=== PATIENT | female | born 1975 | race Caucasian/White ===

== ENCOUNTER 2016-11-08 09:30 | Inpatient (IN) | payer MEDICAID ==
[~2016-11-08] VITALS: Ht 162.6 cm; Wt 123.7 kg
--- NOTE | ~2016-11-08 | OR ---
PATIENT'S NAME: CODY LOPEZ [facility] AGE: 41 Y [address] ROOM: [place] [address] LOCATION: GPCU ADMIT DATE: 11/08/2016 OR/Procedure Report DISCHARGE DATE: FAMILY PHYSICIAN: PHYSICIAN, UNKNOWN ATTENDING PHYSICIAN: JOELLEN CAICEDO SURGEON: Ivan Sim MD SENIOR PROCESS ENGINEER: DATE OF PROCEDURE: 11/08/2016 PREOPERATIVE DIAGNOSIS: Hypertriglyceridemia with pancreatitis, need for plasmapheresis. POSTPROCEDURE DIAGNOSIS: Hypertriglyceridemia with pancreatitis, need for plasmapheresis. PROCEDURE: Placement of right internal jugular Mahurkar 16 cm acute temporary dialysis catheter with ultrasound-guided vein access. ANESTHESIA: Local. DESCRIPTION OF PROCEDURE: The right neck was prepped and draped. Right IJ was identified with ultrasound and the skin anesthetized just superior to this. Under ultrasound guidance, a 19-gauge needle was passed into the vein, single wall technique and a J tipped guidewire passed centrally. The needle was removed. The skin was opened slightly over the wire with an 11 scalpel blade, the tract was dilated, and the 16 cm Mahurkar catheter passed to its hub. Ports aspirated and flushed well. Saline gauze rolls were placed. The catheter was secured to the skin with 3-0 silk and a sterile dressing was applied. The patient tolerated the procedure well. MD ANJUM CARTER/modl /[id number] d: 11/08/16 1517 t: 11/11/16 0818, OPERATIVE SUMMARY
--- NOTE | ~2016-11-08 | CON ---
PATIENT'S NAME: CODY LOPEZ [facility] AGE: 41 Y [address] ROOM: [place] [address] LOCATION: GPCU ADMIT DATE: 11/08/2016 Consultation DISCHARGE DATE: FAMILY PHYSICIAN: Tavares Muniz MD ATTENDING PHYSICIAN: JOELLEN CAICEDO DATE OF CONSULTATION: 11/08/2016 REFERRING PHYSICIAN: Ivan Sim MD This is a [facility] Nephrology consultation. REASON FOR CONSULTATION: Severe hypertriglyceridemia, acute pancreatitis. HISTORY OF PRESENT ILLNESS: This is a 41-year-old female patient with a history of diabetes mellitus, morbid obesity, and history of hypertriglyceridemia. The patient has been admitted for acute pancreatitis, related to hypertriglyceridemia. The patient did have a previous episode of this and was seen in [place]. At that time, the patient's triglyceride levels were reported to be over 7000 upon initial evaluation. The patient was treated with IV fluids, pain management, and was placed on insulin drip in [place]. The patient's triglycerides did improve; however, they were still considered elevated. On November 07, the patient's triglycerides were 7710, lipase 700. The patient was sent to [facility] for higher level of care and possible need for plasmapheresis due to hypertriglyceridemia. At the time of initial consult, the patient's triglycerides have come down to 1403. Therefore, due to the patient's severe hypertriglyceridemia with possible need for plasmapheresis, Dr. Dunlap has been asked to consult and manage the patient while she is hospitalized. PAST MEDICAL HISTORY: As listed above includin. Diabetes. 2. Morbid obesity. 3. History of acute pancreatitis. 4. Severe hypertriglyceridemia. PAST SURGICAL HISTORY: Right temporary dialysis catheter placement by Dr. Sim. SOCIAL HISTORY: There is no use of alcohol, tobacco, or drug use. PATIENT'S NAME: CODY LOPEZ [facility] AGE: 41 Y [address] ROOM: [place] [address] LOCATION: GPCU ADMIT DATE: 11/08/2016 Consultation DISCHARGE DATE: FAMILY PHYSICIAN: Tavares Muniz MD ATTENDING PHYSICIAN: JOELLEN CAICEDO FAMILY HISTORY: Significant for hypertriglyceridemia in her father as well as her grandfather, who from sudden cardiac in his early 50s. Her father also had history of hypertriglyceridemia and did have a cardiac event in his mid 50s. There is also remote history of hypertension and diabetes in her parents. REVIEW OF SYSTEMS: GENERAL: Denies any new fever, chills, or night sweats. EYES: No double vision or blurred vision. NOSE: No epistaxis or rhinorrhea. MOUTH: No gingival bleeding. THROAT: No sore throat, hoarseness, or cough. RESPIRATORY: Denies wheezing or hemoptysis. CARDIOVASCULAR: See HPI. GASTROINTESTINAL: Positive for nausea, however, this has improved. Positive for abdominal pain. Denies any new vomiting. GENITOURINARY: Denies frequency, urgency, or hesitancy. ENDOCRINE: Positive for uncontrolled diabetes. IMMUNOLOGICAL: Denies history of recent infection. HEMATOLOGICAL: Denies bruising or easy bleeding. PSYCHIATRIC: Denies depression or anxiety. PHYSICAL EXAMINATION: VITAL SIGNS: Blood pressure is 117/56, pulse is 92, respirations 18, temperature 97.8, saturations 97% on room air. GENERAL: On exam, this is an alert and oriented white female, who appears her approximated stated age and is in no acute distress. HEENT: Her head is normocephalic and atraumatic. Eyes: Pupils are equal and react briskly to light and accommodation. EOMs intact. Nose: Midline. Mouth: No gingival bleeding. Throat: Without lymphadenopathy or carotid bruits. No JVD. LUNGS: Lung sounds are clear to auscultation anteriorly and posteriorly. Breaths are nonlabored. CARDIOVASCULAR: Regular rate and rhythm with no appreciable murmurs, rubs, or thrills. ABDOMEN: Diffuse tenderness noted. Bowel sounds positive. EXTREMITIES: Show no signs of peripheral edema, clubbing, or cyanosis. NEUROLOGIC: Cranial nerves 2 through 12 are grossly intact. GENITOURINARY: Deferred. LABORATORY DATA: Triglycerides 1403, cholesterol 287, HDL is 34, lipase is 1205. Glucose is 252, BUN 4, creatinine 0.5, sodium 132, potassium 3.6, chloride 101, CO2 is 22, and calcium 6.5, albumin 2.3. AST 14, ALT 19, alkaline phosphatase 73, mag 2.1. WBC 16.8, hemoglobin is 12.4, hematocrit 36.6, and platelets 258. PATIENT'S NAME: CODY LOPEZ [facility] AGE: 41 Y [address] ROOM: [facility] [place] [address] LOCATION: GPCU ADMIT DATE: 11/08/2016 Consultation DISCHARGE DATE: FAMILY PHYSICIAN: Tavares Muniz MD ATTENDING PHYSICIAN: JOELLEN CAICEDO DIAGNOSTIC STUDIES: Chest x-ray is reviewed noting a right-sided dialysis catheter present with tip at the distal SVC. Suboptimal inspiration attenuates cardiac silhouette and bronchovascular markings. No focal infiltrate, pleural effusion, or pneumothorax was identified. ASSESSMENT AND PLAN: Severe hypertriglyceridemia. Dr. Dunlap does recommend that we initiate plasmapheresis for this patient. We will initiate one plasma exchange, replace with 5% albumin, blood flow at 80. We will continue x1 treatment and monitor her triglycerides very closely. Further recommendations will be forthcoming. This patient has been seen and assessed by Dr. Dunlap. Her care is being conducted in consultation with Dr. Dunlap as well as me. We will plan further recommendations as they are forthcoming. JERAD MCCRARY DNP, SCHOOL NURSE FOR [place] MD TAWNYA LY/modl /[id number] d: 11/09/162122 t: 11/12/16 1529, CONSULTATION REPORT
--- NOTE | ~2016-11-08 | DS ---
PATIENT'S NAME: CODY LOPEZ [facility] AGE: 41 Y [address] ROOM: [id number] [place], [place] [address] LOCATION: GPCU ADMIT DATE: 11/08/2016 Discharge Summary DISCHARGE DATE: 11/11/2016 FAMILY PHYSICIAN: Tavares Muniz MD ATTENDING PHYSICIAN: Fay Cortez DISCHARGE DIAGNOSES: 1. Pancreatitis. 2. Severe hypertriglyceridemia. 3. Morbid obesity. 4. Diabetes mellitus type 2. PRINCIPAL PROCEDURES: She had a subclavian multi-catheter placed in the right side of the neck for TPE. REASON FOR ADMISSION: Severe abdominal pain. LABORATORY FINDINGS: Blood sugars have been in the lower to mid 200s during the hospitalization. Last chemistries showed sodium 136, potassium was down to 3.1 today, glucose was 224 at that time, calcium 7.3 with an albumin low at 2.9. Her liver functions, AST and ALT were normal. Phosphorus was low at 1.8. Magnesium was normal at 2.0. Her triglycerides post-dialysis were down to 334, but had been up to 1403. Hemoglobin A1c was 11.4. Hematology: White count as of this morning was 14.3, down from 16.8; hemoglobin was 10.3, down from 12.4 on 11/08; platelets were normal. Hepatitis B surface antigen screen was negative. Chest x-ray showed the right-sided dialysis catheter with the tip in the distal SVC. No infiltrates. HOSPITAL COURSE: Gradual improvement. She is markedly better today than yesterday, so we will send her out on extra potassium and other medications per the [facility]. We are going to bump her Levemir to 15 units subcu daily, and I have stopped the glipizide because that is also a hypoglycemic drugs. I do not want 2 of those at the same time. She cannot use Trulicity anymore because of the pancreatitis, and she will have followup scheduled with Dr. Cerda in the Lipid Clinic at the [facility] at [phone]. I spoke with Carmen, and they will call the patient for an appointment, and they can figure out how often she needs followup ultrafiltration. At some point in the near future, she will probably need a fistula placed, so she does not need a subclavian every time she gets dialysis. Diet will be low fat. I have asked her to walk aggressively daily and do clockwise belly rubs as well as frequent compression of Li-4 and ST-36 (acupressure points). PATIENT'S NAME: CODY LOPEZ [facility] AGE: 41 Y [address] ROOM: [place] [address] [facility] AD[facility] DATE: 11/08/2016 Discharge Summary DISCHARGE DATE: 11/11/2016 FAMILY PHYSICIAN: Tavares Muniz MD ATTENDING PHYSICIAN: Fay Cortez MD TAWNYA TATUMJ/modl /[id number] d: 11/11/16 2349 t: 11/12/16 1708, DISCHARGE SUMMARY
--- NOTE | ~2016-11-08 | HP ---
PATIENT'S NAME: CODY LOPEZ [facility] AGE: 41 Y [address] ROOM: [address] [address] LOCATION: GPCU ADMIT DATE: 11/08/2016 History & Physical DISCHARGE DATE: FAMILY PHYSICIAN: PHYSICIAN, UNKNOWN ATTENDING PHYSICIAN: JOELLEN CAICEDO DATE OF SERVICE: CHIEF COMPLAINT: Abdominal pain, acute pancreatitis. HISTORY OF PRESENT ILLNESS: This is a 41-year-old female with history of diabetes, morbid obesity, and history of acute pancreatitis from hypertriglyceridemia. The first episode was about 3 months ago, presents from [place] with the same. The patient presented with abdominal pain. Nausea, vomiting of 2 days' duration and was found to have another pancreatitis attack, and triglyceride levels at presentation were 7000+ upon initial evaluation. The patient was treated with IV fluids, pain management, and was put on insulin drip at [place] and stayed there overnight and repeat triglyceride, although improved but still stayed high at 2300. The patient's abdominal pain under clinical status did not quite improve as improving triglyceride levels anyway. The patient during my evaluation today is ill-appearing, still complains of significant abdominal pain with radiation to the back and still has nausea and vomiting symptoms related to this as well. The patient has not had a bowel movement in 3 days, but is passing gas. Otherwise, the patient denies any chest pain, shortness of breath, dizziness, lightheadedness, any dysuria or urinary frequency symptoms. No fever or chills as well. PAST MEDICAL HISTORY: Type 2 diabetes, history of acute pancreatitis, hypertriglyceridemia, morbid obesity. SOCIAL HISTORY: There is no report of alcohol, tobacco, or drug use. FAMILY HISTORY: The patient has history of hypertension and diabetes in her parents. REVIEW OF SYSTEMS: All systems have been reviewed and were all negative except as described in the HPI. PHYSICAL EXAMINATION: VITAL SIGNS: The patient is afebrile and vital signs are stable. PATIENT'S NAME: CODY LOPEZ [facility] AGE: 41 Y [address] ROOM: [id number] [place] [id number] LOCATION: GPCU ADMIT DATE: 11/08/2016 History & Physical DISCHARGE DATE: FAMILY PHYSICIAN: PHYSICIAN, UNKNOWN ATTENDING PHYSICIAN: JOELLEN CAICEDO GENERAL: The patient is ill appearing, lethargic, but awake, alert, or oriented x3, in moderate at distress with abdominal pain. HEENT: Moist mucous membranes. No scleral icterus or conjunctival pallor noted. SKIN: Without rash or lesion. CHEST: Clear to auscultation bilaterally. HEART: S1, S2. Regular rate and rhythm. Tachycardic. ABDOMEN: Mild distention. Soft and diffuse tenderness predominantly in the epigastrium. The patient has positive bowel sounds. MUSCULOSKELETAL: No joint tenderness, effusion, or erythema noted. NEUROLOGIC: Nonfocal. SIGNIFICANT LABS: Triglycerides 2300, lipase above 3 times of upper limit of normal. ASSESSMENT AND PLAN: 1. Acute pancreatitis secondary to hypertriglyceridemia. This is her second acute pancreatitis in the past in the past 3 months. The patient was treated with IV insulin and supportive care, but did not clinically improve at [place]. The patient transferred here for a plasma exchange. The patient is getting a temporary hemodialysis catheter and she will get plasma exchange with Nephrology. We will do at least a cycle or two of 5-month plasma exchange with goals of getting triglyceride levels to less than 500. We will monitor triglyceride levels daily. In the meantime, continue with aggressive IV fluid resuscitation and pain management and the patient is to stay n.p.o. until she improves symptomatically. 2. Hypertriglyceridemia. Acute state managed as above. The patient on Welchol at home. Perhaps she will need to be on combination regimen in going forward to manage hypertriglyceridemia and requires a close outpatient followup and would benefit an endocrinology followup upon discharge. 3. Type 2 diabetes. The patient is to be on mild sliding scale insulin while n.p.o. 4. Morbid obesity. The patient would benefit from lifestyle modifications and this should also help and manage her hypertriglyceridemia as well. 5. Deep venous thrombosis prophylaxis. We will use SCDs. MD YOU SULLIVAN/jianl PATIENT'S NAME: CODY LOPEZ [facility] AGE: 41 Y [address] ROOM: [place] [address] LOCATION: GPCU ADMIT DATE: 11/08/2016 History & Physical DISCHARGE DATE: FAMILY PHYSICIAN: PHYSICIAN, UNKNOWN ATTENDING PHYSICIAN: JOELLEN CAICEDO /[id number] D: [id number] T: 002 HISTORY & PHYSICAL
[2016-11-08] MEDS ORDERED: WELLBUTRIN XL150 M1 PO (12:21)
[2016-11-08] MEDS ORDERED: GLUCOTROL10 MG PO (12:22)
[2016-11-08] MEDS ORDERED: LEVOTHROID (SY50 MCG PO (12:23)
[2016-11-08] MEDS ORDERED: ATIVAN 0.5MG0.5 MG PO (12:24)
[2016-11-08] MEDS ORDERED: BYSTOLIC5 MG PO (12:24)
[2016-11-08 13:53] LABS: BASOPHIL % 0.2 %; EOSINOPHIL # 0.3 K/uL (0.0-0.5); EOSINOPHIL % 1.8 %; HEMATOCRIT 36.6 % (33.0-46.0); HEMOGLOBIN 12.4 g/dL (10.0-15.0); IMMATURE GRANULOCYTE # 0.1 K/uL (0.0-0.3); IMMATURE GRANULOCYTE % 0.6 %; LYMPHOCYTE # 1.6 K/uL (0.8-4.0); LYMPHOCYTE % 9.4 %; MCHC 33.9 gm/dL (32.0-36.5); MCV 91.5 fl (83.0-98.0); MONOCYTE % 5.8 %; MPV 10.1 fl (9.4-12.4); NEUTROPHIL # (ANC) 13.8 K/uL (1.8-7.8); NEUTROPHIL % 82.2 %; NRBC % 0 /100WBC (0-0.00); PLATELET COUNT 258 K/uL (150-450); RDW-CV 13.3 % (11.9-14.6); WBC 16.8 K/uL (4.0-11.0)
[2016-11-08 14:00] LABS: INR - (THERAPEUTIC) 0.98 (0.92-1.07); PROTIME 10.3 SECONDS (9.8-11.4)
[2016-11-08 14:13] LABS: ALBUMIN 2.3 gm/dL (3.5-5.0); ALK PHOS 73 IU/L (33-138); ALT 19 IU/L (12-78); BLOOD UREA NITROGEN 4 mg/dL (6-24); CHLORIDE 101 mMol/L (96-110); CO2 22 mMol/L (22-32); CREATININE 0.5 mg/dL (0.5-1.1); SODIUM 132 mMol/L (135-145); TOTAL BILIRUBIN 0.5 mg/dL (0.0-1.5); TOTAL PROTEIN 6.5 g/dL (6.0-8.4)
[2016-11-08 14:15] LABS: ANION GAP 12.6 (10.0-19.0); AST 14 IU/L (10-40); CALCIUM 6.5 mg/dL (8.5-10.5); PHOSPHORUS 1.8 mg/dL (2.5-4.9)
[2016-11-08 14:16] LABS: POTASSIUM 3.6 mMol/L (3.7-5.1)
--- NOTE | 2016-11-08 19:49 | NUR ---
PATIENT IS STILL OFF THE UNIT IN [place]. SHE IS RECEIVING FLUID WHILE THERE. SHE WILL BE ON A Q4H ACCHECK. SHE WILL BE NPO WITH ICE CHIPS. PATIENT DID NOT COMPLAIN OF PAIN WHILE ON UNIT. SHE RECEIVED MORPHINE BEFORE ARRIVING. FAMILY IS PRESENT AND IN CONTACT WITH PATIENT. SHE ALSO HAS BROUGHT A FAN AND CPAP MACHINE FOR BEDTIME. A LEFT IJ CATH WAS PUT IN THIS AFTERNOON BY MD JULISSA FOR PLASMA DIALYSIS. SHE WILL GO AGAIN IN THE MORNING PER MD HERNANDEZ, WHO IS ALSO FOLLOWING HER CASE. SHE HAS BEEN A CALM AND COOPERATIVE PATIENT SO FAR.
--- NOTE | 2016-11-08 19:52 | NUR ---
1930 RN WENT AND PICKED UP PATIENT BY WHEELCHAIR AT DIALYSIS AND BROUGHT HER BACK. BEFORE WE LEFT THE UNIT SHE HAD A BOWEL MOVEMENT. PATIENT HAD JUST STARTED HER NS WITH CONTINUOUS RATE OF 300 ML/HR.
--- NOTE | 2016-11-08 19:53 | NUR ---
PATIENT ARRIVED ON UNIT AT 1225. SHE WAS AAOX3. SHE WAS ABLE TO WALK WITH ASSISTANCE (PUSHING IV POLL) TO THE BATHROOM. SHE BROUGHT HER ON FAN AND CPAP MACHINE. FAMILY IS ON THERE WAY. PATIENT ALSO HAS PHONE WITH HER.
--- NOTE | 2016-11-08 19:55 | NUR ---
1615 PATIENT IS BEING TAKEN BY WHEELCHAIR TO DIALYSIS. IV POLL WITH NS RUNNING AT 500ML/HR FINISHING UP FIRST LITER. BROADCAST FIELD SUPERVISOR WILL START SECOND LITER TO BE GIVEN. PATIENT SHOULD BE GONE FOR 2 TO 2 AND A HALF HOURS.
--- NOTE | 2016-11-08 19:57 | NUR ---
1400 MD COSTA PRESENT TO PLACE TEMPORARY CATH FOR PLASMA DIALYSIS. X-RAY WILL BE DONE POST TO MAKE SURE LINE IS GOOD TO USE.
--- NOTE | 2016-11-08 20:00 | NUR ---
1614 TO 1929 PATIENT WAS OFF UNIT FOR PLASMA DIALYSIS
[2016-11-09 05:10] LABS: BASOPHIL % 0.1 %; EOSINOPHIL # 0.2 K/uL (0.0-0.5); EOSINOPHIL % 1.2 %; HEMATOCRIT 34.8 % (33.0-46.0); HEMOGLOBIN 11.5 g/dL (10.0-15.0); IMMATURE GRANULOCYTE # 0.2 K/uL (0.0-0.3); IMMATURE GRANULOCYTE % 0.9 %; LYMPHOCYTE % 11.4 %; MCH 30.8 pg (27.0-34.0); MCV 93.3 fl (83.0-98.0); MONOCYTE % 5.9 %; MPV 10.3 fl (9.4-12.4); NEUTROPHIL # (ANC) 14.1 K/uL (1.8-7.8); NEUTROPHIL % 80.5 %; NRBC % 0 /100WBC (0-0.00); PLATELET COUNT 216 K/uL (150-450); RBC 3.73 M/uL (3.50-5.50); RDW-CV 13.6 % (11.9-14.6); WBC 17.5 K/uL (4.0-11.0)
[2016-11-09 05:29] LABS: ALBUMIN 2.8 gm/dL (3.5-5.0); ALK PHOS 47 IU/L (33-138); ALT 11 IU/L (12-78); ANION GAP 12.8 (10.0-19.0); AST 7 IU/L (10-40); BLOOD UREA NITROGEN 6 mg/dL (6-24); CHLORIDE 109 mMol/L (96-110); CO2 19 mMol/L (22-32); CREATININE 0.5 mg/dL (0.5-1.1); MAGNESIUM 2.1 mg/dL (1.8-2.6); POTASSIUM 3.8 mMol/L (3.7-5.1); SODIUM 137 mMol/L (135-145); TOTAL BILIRUBIN 0.6 mg/dL (0.0-1.5); TOTAL PROTEIN 5.5 g/dL (6.0-8.4)
[2016-11-09 05:30] LABS: CALCIUM 6.6 mg/dL (8.5-10.5)
--- NOTE | 2016-11-09 11:10 | NUR ---
1025 Came by to talk with Chantale but she was out of her room per her RN Tracey. Tracey says that she is up moving around well and will be able to return home when the time comes. In reviewing her chart, it appears that she lives in [place], no PCP is listed on her chart so we will talk about that when I go in to visit with her about dismissal plans. CM to continue to follow and assist.
--- NOTE | 2016-11-09 13:24 | NUR ---
Diabetes center note: 1300 Patient is sleeping very soundly when CDE goes to room, as per nursing staff this is not an appropriate time for education. Left the Diabetes Management Booklet and Diabetes Survival Skills Assessment Form at the bedside. As per documentation in [facility], it appears that patient was only on Glucotrol at home, may need to consider additional medication to control blood sugars. Aniticipate that patient will be here a few days yet, so will continue to follow up and make recommendations.
--- NOTE | 2016-11-09 19:24 | NUR ---
Significant Event: PT ALERT & ORIENTED X3. MINA, FAC. Hx of peripheral neuropathy in the lower extremities. PT c/o SOB at times, improved on change of position and following addition of O2. Up SBA for ambulation as lilliana. NPO with ice chips. NS @ 300mL/hr L) UA PIV; R) PIV SL. Follow up: Plan to start GasX in the AM. Continue to monitor I&O, VS.
--- NOTE | 2016-11-10 04:26 | NUR ---
Significant event: Patient is alert and oriented x3. Complains of pain in abdomen. Dilaudid given x2 and morphine 1mg given x1 with relief noted. Patient continues on 2L O2. Continues to be NPO with ice chips given occasionally. L) Anterior FA IV with ns running at 300ml. Up to bathroom x2 with SBA. Patient has been calm and cooperative with care.
[2016-11-10 07:49] LABS: BASOPHIL % 0.2 %; EOSINOPHIL # 0.4 K/uL (0.0-0.5); HEMATOCRIT 31.8 % (33.0-46.0); HEMOGLOBIN 10.6 g/dL (10.0-15.0); IMMATURE GRANULOCYTE # 0.3 K/uL (0.0-0.3); IMMATURE GRANULOCYTE % 1.7 %; LYMPHOCYTE # 1.9 K/uL (0.8-4.0); MCH 30.6 pg (27.0-34.0); MCHC 33.3 gm/dL (32.0-36.5); MCV 91.9 fl (83.0-98.0); MONOCYTE # 0.9 K/uL (0.0-1.0); MPV 10.4 fl (9.4-12.4); NEUTROPHIL # (ANC) 11.3 K/uL (1.8-7.8); NEUTROPHIL % 76.1 %; NRBC % 0.1 /100WBC (0-0.00); PLATELET COUNT 216 K/uL (150-450); RBC 3.46 M/uL (3.50-5.50); RDW-CV 14.1 % (11.9-14.6); WBC 14.9 K/uL (4.0-11.0)
[2016-11-10 08:01] LABS: ALBUMIN 2.8 gm/dL (3.5-5.0); ALK PHOS 66 IU/L (33-138); ALT 15 IU/L (12-78); BLOOD UREA NITROGEN 5 mg/dL (6-24); CHLORIDE 113 mMol/L (96-110); CREATININE 0.4 mg/dL (0.5-1.1); SODIUM 141 mMol/L (135-145); TOTAL PROTEIN 5.3 g/dL (6.0-8.4)
[2016-11-10 08:04] LABS: ANION GAP 14.7 (10.0-19.0); AST 22 IU/L (10-40); CALCIUM 6.5 mg/dL (8.5-10.5); CO2 17 mMol/L (22-32); MAGNESIUM 2.1 mg/dL (1.8-2.6); POTASSIUM 3.7 mMol/L (3.7-5.1); TOTAL BILIRUBIN 0.8 mg/dL (0.0-1.5)
--- NOTE | 2016-11-10 11:11 | NUR ---
Spent over an hour discussing Diabetes managment and stressed importance of obtaining proper control of blood sugars to reduce risks of complications. Patient has strong family history, will need insulin injections upon dismissal, Levemir insulin was started 2 days ago. Patient states she has given herself injections in the past and will have CDE spoke with Carlos, primary care nurse who is willing to assess patient technique of drawing up insulin from a vial and her self injection technique. Discussed action, timing and storage of insulin, unsure at this time if she will be going home on Novolog. RN spent time educating patient regarding all topics on the Diabetes Survival Skills assessment form and states understanding teaching provided. Phone number is provided for her to contact the [facility] in [place], to schedule an appointment for on-going education and management. Patient denies further questions at this time, will have CDE check with patient 11/11/16
--- NOTE | 2016-11-10 12:09 | NUR ---
Introduced self and CM role to Chantale and family that was at bedside. Chantale states that she lives in [place] with her younger kids and plans to return there when she is medically cleared to do so. PCP is REDDY Coombs out of [place]. Chantale manages her own medications at home, gets them filled at [facility] in [place]. States she has no issues paying for them. Chantale doesn't use any DME at baseline and denies the need for any upon dismissal. Also denies wanting HHC to follow when she goes home. Diabetic Ed has been up to see her and visit with her about her insulin needs upon dismissal, she has no questions about this when she goes home. Diabetic Ed, Merari, tells me that Chantale is to make an appt with DE in [place] when she is dismissed, Chantale has the phone number for this at bedside. Chantale denies any other questions, needs or concerns. Family will supervisor opening and picking and transport her home when she is ready to go. Left name on her whiteboard incase she thinks of any more questions for CM before she leaves. CM to continue to follow and assist. Plan home.
--- NOTE | 2016-11-10 16:54 | NUR ---
Significant Event: VSS AND RA. AFEBRILE. 1 MG IV DILAUDID X2 AND 2 TABS PERCOCET FOR ABDOMINAL PAIN AND BLOATING, WITH GOOD RELIEF. AMBULATES SEVERAL LAPS IN [place]. IVF'S DECREASED AND CHANGED; 20 MG IV LASIX GIVEN WITH 1850 MLS UOP. RT)IJ DIALYSIS LINE WAS D/C'D WITHOUT DIFFICULTY AND DRESSING REMAINS C/D/I. DIABETIC ED UP TO SEE. BS 200 RANGE TODAY. TRIGLYCERIDES WERE 370. Follow up: CONTINUE PLAN OF CARE; PAIN CONTROL; PROBABLE HOME TMRW.
--- NOTE | 2016-11-11 04:49 | NUR ---
A/O. HR 90s. SBP 100-120s. ROOM AIR. CPAP AT NIGHT. AFEBRILE. WALKED IN HALLS x1. SBA TO BATHROOM. PERCOCET 2 TABS x2. IV DUALIDID x1. 1/2 NS 20 KCL AT 50 ML/HR. POSSIBLE DISMISSAL TODAY.
[2016-11-11 05:49] LABS: BASOPHIL % 0.2 %; EOSINOPHIL # 0.7 K/uL (0.0-0.5); EOSINOPHIL % 4.6 %; HEMATOCRIT 31.8 % (33.0-46.0); HEMOGLOBIN 10.3 g/dL (10.0-15.0); IMMATURE GRANULOCYTE # 0.2 K/uL (0.0-0.3); IMMATURE GRANULOCYTE % 1.1 %; LYMPHOCYTE # 2.8 K/uL (0.8-4.0); LYMPHOCYTE % 19.8 %; MCH 29.9 pg (27.0-34.0); MCHC 32.4 gm/dL (32.0-36.5); MCV 92.2 fl (83.0-98.0); NEUTROPHIL # (ANC) 9.6 K/uL (1.8-7.8); NEUTROPHIL % 67.3 %; NRBC % 0 /100WBC (0-0.00); PLATELET COUNT 253 K/uL (150-450); RBC 3.45 M/uL (3.50-5.50); RDW-CV 13.8 % (11.9-14.6); WBC 14.3 K/uL (4.0-11.0)
[2016-11-11 06:09] LABS: ALBUMIN 2.9 gm/dL (3.5-5.0); ALK PHOS 87 IU/L (33-138); ALT 19 IU/L (12-78); ANION GAP 12.1 (10.0-19.0); AST 17 IU/L (10-40); BLOOD UREA NITROGEN 4 mg/dL (6-24); CHLORIDE 105 mMol/L (96-110); CO2 22 mMol/L (22-32); CREATININE 0.5 mg/dL (0.5-1.1); POTASSIUM 3.1 mMol/L (3.7-5.1); SODIUM 136 mMol/L (135-145); TOTAL BILIRUBIN 0.7 mg/dL (0.0-1.5)
[2016-11-11 06:12] LABS: CALCIUM 7.3 mg/dL (8.5-10.5)
[2016-11-11] MEDS ORDERED: LEVEMIR100 UNIT/1 SUB-Q (11:38)
[2016-11-11] MEDS ORDERED: POTASSIUM CHLO20 ME1 PO (11:42)
[2016-11-11] MEDS ORDERED: PRINIVIL (ZESTRI5 MG PO (11:43)
--- NOTE | 2016-11-11 12:25 | NUR ---
Diabetes consult: Patient being dismissed to home today. Discussed dismissal plans with Dr. Watson. Patient will be going home on Levemir 15 units at . She was instructed on how to use a vial and syringe. She was able to redemonstrate how to draw up the correct amount of insulin without difficulty. Discussed sick day guidelines and hypoglycemia protocol. Patient was encouraged to test blood sugars fasting and a two hour post prandial daily. FBS of <130 and 2 hour post prandial target of <180 provided. Patient denies questions or concerns. She was encouraged to take her glucometer to her PCP apppointment next week for a review of blood sugars.
--- NOTE | 2016-11-11 15:41 | NUR ---
DISCHARGE: A/O X3. UP AD ANGELINA IN ROOM. VSS ON ROOM AIR. VOIDING WELL. C/O PAIN TO ABDOMEN AND C/O BLOATING, PERCOCET 2 TABS GIVEN @ 0855 WITH GOOD RELIEF NOTED. PIV DC'D TO LEFT UPPER ARM. DISCHARGE INSTRUCTIONS REVIEWED. F/U APPOINTMENTS DISCUSSED. PRESCRIPTION PAPERS GIVEN. EDUCATION HANDOUTS ON LOW FAT DIET AND ACUTE PANCREATITIS GIVEN. TAKEN TO [place] ENTRANCE BY WHEELCHAIR @ 1310. PATIENT CALLED RN @ 1322 STATING THAT SHE DID NOT RECEIVE A PRESCRIPTION FOR PAIN MEDICINE. DR. TAWNYA POOL CALLED AND HE WROTE SCRIPT FOR PERCOCET PRN FOR PAIN. PRESCRIPTION TAKEN TO [place] ENTRANCE BY RN AND GIVEN TO PATIENT.
== END 2016-11-11 13:10 | disposition disaster alternative care site (69) | DRG 439 ==
LOC: GPCU 11:46
PROVIDERS: Internal Medicine Nephrology; ADMIT Internal Medicine
PROC: 05H533Z Insertion of Infusion Device into Right Subclavian Vein, Percutaneous Approach (ICD-10-PCS; principal; 2016-11-08)
PROC: B546ZZA Ultrasonography of Right Subclavian Vein, Guidance (ICD-10-PCS; 2016-11-08)
PROC: 6A551Z3 Pheresis of Plasma, Multiple (ICD-10-PCS; 2016-11-08)
DX: K85.90 Acute pancreatitis without necrosis or infection, unspecified (principal); Z68.42 Body mass index [BMI] 45.0-49.9, adult; E66.01 Morbid (severe) obesity due to excess calories; E78.1 Pure hyperglyceridemia; E11.9 Type 2 diabetes mellitus without complications; G47.33 Obstructive sleep apnea (adult) (pediatric)
CPT/HCPCS: C1887; C9113; J0610; J1170; J1644; J1940; J2270; J3480; J7030; J7040; P9045